=== PATIENT | female | born 1970 | race Caucasian/White ===

== ENCOUNTER 2016-10-03 12:56 | Emergency (ER) | payer OTHER ==
[~2016-10-03] VITALS: Ht 165.1 cm; Wt 70.5 kg
[2016-10-03 13:00] VITALS: BP 148/105; PULSE 76; RESP 18; O2SAT 99
--- NOTE | 2016-10-03 13:14 | ED.REPORT ---
HPI-Extremity Problem Lower Date of Service Oct 03, 2016 ED Provider: Joon Kang MD Pt is a 45 y/o female presenting to the ED due to left ankle injury onset last night. The pt rolled her left ankle while walking in her yard yesterday and went to Urgent Care. Urgent Care sent her here after noticing a fracture and possible need for reduction with sedation. She denies any other injury, numbness , or weakness. Nursing Notes Stated Complaint: LEFT ANKLE PAIN Chief Complaint: Extremity Trauma Nursing Notes Reviewed: Yes Allergies: Coded Allergies: Penicillins (Verified Allergy, Unknown, 10/03/16) Scheduled PRN Hydrocodone-Acetaminophen 5-325 mg (Hydrocodone-Acetaminophen 5-325 mg) 1 Each Tablet 1 TABLET PO Q4H PRN PRN For Pain General Time Seen by MD: 13:05 Chief Complaint Ankle injury left Hx Obtained From: Patient Arrived By: Wheelchair Onset Occurred: Yesterday Symptom Duration: Since onset Caused by: Accidental, Body motion Location: : Ankle left Quality: Painful Severity: Current: Moderate Severity: Maximum: Severe Exacerbated by: Range of motion, Movement Similar Sx Previous: No Past Medical History Past Medical History None reported Past Surgical History None reported Smoking History Unknown if Ever Smoker Ambulatory Status Independent Review of Systems Constitutional: Denies: Chills, Fever Musculoskeletal: Reports: Extremity pain, Extremity swelling Neurologic: Denies: Headache, Numbness, Weakness Complete sys rev & neg: except as marked. Physical Exam Initial Vital Signs Vital Signs (First) Date Time Temp Pulse Resp B/P Pulse Ox O2 Delivery O2 Flow Rate FiO2 10/03/16 13:00 36.1 76 18 148/105 99 10/03/16 17:02 Room Air Initial VS: Reviewed, Vital signs normal Head / Eyes: Atraumatic, Normocephalic, PERRL ENT: Mucous membranes moist, Conjunctiva normal, No scleral icterus Neck: Supple, Full range of motion Respiratory: Breath sounds normal, Clear to auscultation, No respiratory distress Cardiovascular: Regular rate & rhythm, Heart sounds normal, Intact distal pulses Abdomen / GI: Soft, No distention Skin: Warm, Dry, No cyanosis Neurologic: Alert, Oriented, Nonfocal Psychiatric: Mood/affect normal, Behavior normal, Normal thought content Lower Extremity / Pelvis / MS: Neurologic intact, Vascular intact Ankle / Foot: Neurologic intact, Vascular intact Left ankle is ecchymotic and swollen. Skin intact. No significant angulation Good DP and PT pulses Interpretation & Diagnostics Lab Results Interpretation Test 10/03/16 14:38 Hold Purple Top Tube Received (Received) Hold Blue Top Tube Received (Received) Hold Semmes Top Tube Received (Received) X-Ray Interpretation Xray Interpretation: Trimalleolar fracture. Read by orthopedic. Study Performed: 3 view X-Ray Ordered: Ankle left Interpretation / Wet Read by: Wet read ED physician Xray Interpretation: IMPRESSION: Increased displacement of trimalleolar ankle fracture, as described above. Dictated by: Tamia Chapman M.D. on 10/03/2016 at 15:34 Approved by: Tamia Chapman M.D. on 10/03/2016 at 15:36 Study Performed: 3 view, s/p attempted reduction X-Ray Ordered: Ankle left Interpretation / Wet Read by: Interpret - Radiologist Xray Interpretation: IMPRESSION: Improved alignment of trimalleolar ankle fracture. Dictated by: Tamia Chapman M.D. on 10/03/2016 at 16:53 Approved by: Tamia Chapman M.D. on 10/03/2016 at 16:54 Study Performed: 2 view X-Ray Ordered: Ankle left Interpretation / Wet Read by: Interpret - Radiologist Procedures Proced Mod Sedation/Analgesia Time: 16:20 Procedure Performed by: ED physician Sedation Time: 31 - 45 min Consent / Setup: Consent from patient Indication: Fracture reduction Preparation: shelter monitor applied, Pulse oximeter applied, Constant attendance, IV access established, Eval last meal time, Supplemental oxygen, Procedure explained, Suction available, End tidal CO2 mon applied VS Prior to Procedure: All vital signs normal, O2 saturation normal, Blood pressure normal, Heart Rate normal, Respiratory rate normal Mallampati: Class & Anatomy: 2 top tonsil/uvula/palate Airway Exam: Normal facial anatomy, Normal neck anatomy, Normal anatomy CVS/Resp Exam: Normal breath sounds, Normal heart sounds Neuro Exam: Alert, No acute distress Sedation: Sedation: Propofol (80 mg) ASA Classification: 1 normal healthy patient Response During Procedure: Handled secretions adeq, Maintained airway well, Oxygenation stable, Sedation appropriate, Vital signs stable Complications During/After: None Reversal: None required Mental Status After Procedure: Alert, Oriented X3 Post-Procedure: Alert prior to discharge, Ambulatory with assist, Pt rtn pre- proc baseline, Vital signs normal Attestation: I performed procedure, I performed sedation Reduction Dislocated Ankle THIS IS A FRACTURE REDUCTION. THERE IS NO NOTE FOR ANKLE REDUCTION SO THIS WAS USED THE CLOSEST SUBSTITUTE. Procedure not successful. During the reduction the patient became very anxious and moved her leg erratically against my instruction. Her ankle felt worse after the procedure. Second attempt at 16:20. Using L arm this time with sedation. Reduction successful. Condition improved. Time: 14:41 Procedure Performed by: ED physician Consent / Setup: Consent from patient, Hand hygiene observed, Stand sterile technique Which Ankle and Technique: Left ankle Neurovascular: Intact pre-procedure, Intact post-procedure Post-Procedure / Complications: Tolerated procedure well, Patient stable Re-Eval/Medical Decision Med Decision/Clinical Course Pt is a 45 y/o female presenting to the ED due to left ankle injury onset last night. The pt rolled her left ankle while walking in her yard yesterday and went to Urgent Care. Urgent Care sent her here after noticing a fracture and possible need for reduction with sedation. Upon arrival patient was afebrile and hemodynamically stable. X-rays were obtained that demonstrated mildly displaced trimalleolar fracture. Meds given: Dilaudid, Zofran. I discussed management with the patient and she wished to proceed with fracture reduction/splinting with IV hydromorphone and sedation. Upon attempts to manipulate the patient's ankle however she expressed significant pain and actively plantar flex her ankle causing further displacement of her fracture. Therefore we opted to perform procedural sedation using propofol as documented above. The patient was maintained on end-tidal CO2 and pulse oximetry at all times and tolerated sedation well. The fracture was reduced using fluoroscopy and adequate alignment was achieved. She was placed in a bulky Whalen splint and remained neurovascularly intact distally. She was provided with crutches and made nonweightbearing. She had been referred to orthopedic surgery for further management. She was discharged in good condition. Re-Evaluation/Progress : Time of Eval: 16:00 Patient Status: Condition improved, Moderate relief, Pain improved Re-Evaluation/Progress Note: Pt rechecked. Informed pt of plan for treatment. Pt understands and agrees with plan for treatment. F/U instructions and RTER warnings given. All questions addressed. Consultation : Referral / Consult Name: Juliano Larsen DO Call Returned at: 13:40 It Account Manager: Agrees with eval, Agrees with plan Note: Reports that this is a trimalleolar fracture. He will see the pt in follow up. Counseled Regarding: Diagnosis, Need for follow-up, When/why to return to ED Discharge & Departure Impression: Primary Impression: Trimalleolar fracture of left ankle Encounter type: initial encounter Fracture type: closed Qualified Code: S82.852A - Displaced trimalleolar fracture of left lower leg, initial encounter for closed fracture Additional Impressions: Fall from ground level Left ankle pain Chronicity: acute Qualified Code: M25.572 - Pain in left ankle and joints of left foot Disposition: Home Discharge Condition All VS Reviewed: Yes Condition: Stable Patient Instructions: Ankle Fracture (DC) Additional Instructions: Thank you for seeking care at emergency room. You have a trimalleolar fracture of your left ankle. Keep the splint on until seen by orthopedics. You will be discharged with a prescription for pain medication. Take this as directed. You should follow-up with an orthopedic doctor this week. The referral information is below. You should return to the ED immediately if you develop worsening uncontrolled pain, numbness or weakness of your foot, or any other concerning signs or symptoms. Thank you for letting us partake in your care today. Referrals: Mayito Wright MD (PCP) Juliano Larsen Attestation Portions of this note were transcribed by Arsenio Francisco. I, Dr. Kang personally performed the history, physical exam and medical decision-making; I reviewed and confirmed the accuracy of the information in the transcribed note. Signed by Yefri Johnston, 10/03/16 - 1221 copies to: Juliano Larsen DO; aMyito Wright MD, Beck O MD Oct 03, 2016 13:14 ARSENIO FRANCISCO Oct 03, 2016 14:20
[2016-10-03] MEDS ORDERED: Ondansetron 2 mg/mL 2 mL Inj IVPUSH PRN (13:15)
[2016-10-03] MEDS: HYDROmorphone 0.5 mg/0.5 mL iSecure Syringe IVPUSH PRN ×2 (13:35→16:05)
[2016-10-03] MEDS ORDERED: HYDROmorphone 1 mg/mL Inj IVPUSH ONE ×2 (14:15→14:20)
[2016-10-03] MEDS ORDERED: HYDR-4003 PO (14:19)
[2016-10-03] MEDS ORDERED: Propofol 10 mg/mL 20 mL Inj IVPUSH ONE (15:35)
--- NOTE | 2016-10-03 15:37 | DRSVH ---
PROCEDURE: X-RAY LEFT ANKLE, MINIMUM THREE VIEWS ([id number]) INDICATIONS: post reduction TECHNIQUE: 3 views of the ankle were acquired. COMPARISON: [facility], CR, XR ANKLE 3VW LT, 10/03/2016, 13:34. FINDINGS: Bones: There is a trimalleolar ankle fracture, as before. A splint is present, obscuring fine bony de tail. There is increased displacement of the fracture fragments, with relatively increased plantar fl exion of the foot compared to prior examination. The talus demonstrates increased, posterior displace ment relative to the distal tibia. The distal fibular and posterior malleolus fracture fragments demo nstrate increased displacement. Soft tissues: No tibiotalar joint effusion. Achilles tendon appears normal. IMPRESSION: Increased displacement of trimalleolar ankle fracture, as described above. Dictated by: Tamia Chapman M.D. on 10/03/2016 at 15:34 Approved by: Tamia Chapman M.D. on 10/03/2016 at 15:36
--- NOTE | 2016-10-03 16:37 | DRSVH ---
PROCEDURE: X-RAY LEFT ANKLE, MINIMUM THREE VIEWS ([id number]) INDICATIONS: fracture TECHNIQUE: 3 views of the ankle were acquired. COMPARISON: None. FINDINGS: Bones: Segmental intra-articular fractures present above the distal fibular metadiaphysis with mild l ateral and displacement of the distal fracture component. Mildly displaced posterior malleolar fract ure. There is linear lucency extending to the medial malleolus also suspicious for fracture but give n the appearance chronicity is indeterminate. Mild widening of the lateral ankle mortise. Post surg ical changes involving the first metatarsal head. Soft tissues: No tibiotalar joint effusion. Achilles tendon appears normal. IMPRESSION: Probable trimalleolar left ankle fracture as above with mild widening of the lateral ankl e mortise. Of note, well-corticated osseous density adjacent to the tip of the lateral malleolus lik mayur an ossicle. Dictated by: Francois Jin [facility] Interpreted: Yolanda Schultz MD on 10/03/2016 at 16:35 Transcribed by: FREDRICK on 10/03/2016 at 16:36 Approved by: Yolanda Schultz MD, PhD on 10/03/2016 at 16:54
--- NOTE | 2016-10-03 17:01 | DRSVH ---
PROCEDURE: X-RAY LEFT ANKLE, TWO VIEWS ([id number]) INDICATIONS: post reduction TECHNIQUE: 2 intraoperative spot views of the ankle were acquired. COMPARISON: [facility], CR, XR ANKLE 3VW LT, 10/03/2016, 15:12. FINDINGS: A splint is present, obscuring fine bony detail. Bones: There is improved alignment of the trimalleolar ankle fracture. Soft tissues: No tibiotalar joint effusion. Achilles tendon appears normal. IMPRESSION: Improved alignment of trimalleolar ankle fracture. Dictated by: Tamia Chapman M.D. on 10/03/2016 at 16:53 Approved by: Tamia Chapman M.D. on 10/03/2016 at 16:54
[2016-10-03 17:02] VITALS: BP 128/67; PULSE 63; RESP 16; O2SAT 97
[2016-10-08] MEDS ORDERED: OXYC1TAB24 PO (09:35)
[2016-10-08] MEDS ORDERED: DOCU-41 PO (09:35)
== END 2016-10-03 17:03 | disposition home or self-care (01) ==
LOC: SED 12:56
DX: S82.852A Displaced trimalleolar fracture of left lower leg, initial encounter for closed fracture (principal); X50.1XXA Overexertion from prolonged static or awkward postures, initial encounter; Y92.017 Garden or yard in single-family (private) house as the place of occurrence of the external cause; Y93.01 Activity, walking, marching and hiking; Y99.8 Other external cause status; Z88.0 Allergy status to penicillin
CPT/HCPCS: 27816; 73600; 73610; 76000; 94770; 94799; 96374; 96375; 96376; 99152; 99153; 99285; J1170; J2405

== ENCOUNTER 2016-10-09 10:02 | Day surgery (SDC) | payer OTHER ==
[2016-10-09] VITALS (13 sets, daily range): BP systolic 126–158; BP diastolic 62–98; PULSE 64–82; RESP 10–25; O2SAT 95–100
[~2016-10-09] VITALS: Ht 165.1 cm; Wt 74.2 kg
--- NOTE | 2016-10-09 06:37 | PCM.HPANE ---
Patient Data Surgeon Admitting Provider: Attending Provider:Andre Lozoya MD Primary Care Physician:Mayito Wright MD Other Provider:[facility] Reason for Visit Left Ankle Fracture Ht/WT & BMI Height (Feet): 5 Height (Inches): 5 Weight (Kilograms): 70.31 Body Mass Index 25.00 Allergies Coded Allergies: Penicillins (Verified Allergy, Unknown, 10/03/16) Past Anesthesia History Anesthesia History: Denies:: Abnormal Airway, Anesthesia Reactions, Difficult Intubation, Fam Anesthesia Reaction, Fam Malignant Hypertherm, Malignant Hyperthermia Diabetes History Hx Diabetes?: No MRSA MRSA: No Medications Hypertension Medication: No Home Meds Incl Beta Saeid: No Reported Medications oxyCODONE-Acetaminophen 5-325 mg 1 Each Tablet1 Tab PO Q6H PRN For Pain Ref 0 10/08/16 Docusate Sodium (Colace)100 Mg [id number] Mg PO DAILY PRN For Constipation Ref 0 10/08/16 Discontinued Scripts Hydrocodone-Acetaminophen 5-325 mg 1 Each Tablet1 Tablet PO Q4H PRN For Pain # 20 TABLET Prov:Joon Kang MD 10/03/16 History HEENT History: Denies:: Abnormal Airway Cataracts Difficult Intubation Dysphagia Glaucoma Hearing Problem Sinus Problem TMJ Cardiovascular History: Denies:: AICD Abdominal Aortic Aneurism Cardiac Surgery Congestive Heart Failure Edema Heart Murmur Hypertension Irregular Heartbeat Pacemaker Peripheral Vascular Hx of Respiratory Problem?: No Respiratory History: Denies:: Asthma COPD Emphysema Oxygen Administration Pneumonia Tuberculosis Use of C-PAP Machine Use of Inhalers / NEBS Hx Neurologic Problems?: No Neurological History: Denies:: Alzheimer's Disease CVA Dementia Dizziness Headaches Multiple Sclerosis Parkinson's Disease Seizures TIA Hx of GI Problems?: No Gastrointestinal History: Denies:: Cirrhosis Gall Bladder Disease Gastroesphageal Reflux Gastrointestinal Bleeding Heartburn Hepatitis Hiatal Hernia Liver Disease Hx of Problems?: No Genitourinary History: Denies:: Kidney Stones Urinary Tract Infection Female Hx: Denies:: Currently (hysterectomy) Problems with Breasts? (hx of breast augmention) Skin History: Positive for:: History Skin Disorders? (fracture blisters same leg) Hx Musculoskeletal Problems?: Yes Musculoskeletal History: Positive for:: Musculoskeletal Trauma (left ankle fracture current admission problem) Denies:: Back Injury Fibromyalgia Joint Replacement Myasthenia Gravis Osteoarthritis Rheumatoid Arthritis Systemic Lupus Hx of Psycho/Social Problems?: No Psycho Social History: Denies:: Anxiety Hx Depression Hx Surgeries?: Yes (hysterectomy, breast augmentation) Other History: Positive for:: Thyroid Disease (hyper thyroid, not on meds) Denies:: Cancer History Blood Transfusions: Positive for:: Accept Blood Products? Denies:: Blood Transfusions Hx Diabetes: No Hx Alcohol Use: Yes (not since injury)Alcoholic Drinks Per Day: 4-5 drinks weeklyHx Substance Use: Yes (marijuana randomly) Smoking Status: Unknown if Ever Smoker Have You Smoked inLast 12 mo: Yes Stop/Bang S-Snoring: Do You Snore Loudly: No T-Tired: feel tired, fatigued: No O-Obsered: Observed not breath: No P-Blood Pressure: treated: No B- Body Mass Index > 35 kg/m2: No A- Age over 50: No N- Neck Large Circumference: No G- Gender Male: No SEE Total Score: 0 SEE Risk Assessment: Low Risk, <3 Yes Risk Assessment Category Category 1A: Patient has history of documented sleep apnea, and HAS NOT received any narcotic, sedative or anesthesia administration during this stay. Category 1B: Patient has history of documented sleep apnea, and HAS received any narcotic , sedative or anesthesia administration during this stay Category 2: Patient has SUSPECTED Obstructive Sleep Apnea, and HAS received any narcotic , sedative or anesthesia administration during this stay. Category 3: Patient has SUSPECTED Obstructive Sleep Apnea and HAS NOT received narcotic, sedative or anesthesia administration during this stay. Category 4: Outpatient in Procedural Areas with known sleep apnea or who screen positive for High Risk via the STOP/BANG questionnaire. Exam Exam General Appearance: Alert, Oriented X3, Cooperative, No Acute Distress HEENT/AIRWAY: MP 2 Lungs: Clear to Auscultation, Normal Air Movement Heart: Exam Unremarkable, Regular Rate/Rhythm, No Murmurs/Rubs/Gallops Plan Impression Patient chart reviewed, patient interviewed and anesthestic plan with risks, benefits, and alternatives discussed, and informed consent obtained. ASA Physical Status: ASA2 Mod Systemic Disease Anesthetic Plan: GA Bene/Risks/Altern/Consents: Yes HP Complete Prior to Induction: Yes Hawk Goode MD Oct 09, 2016 06:37
[~2016-10-09 10:02] MED LIST: Clindamycin Inj 600 MG in IV Premix 1 EACH IV ONE; DOCU-41 PO; OXYC1TAB24 PO
[2016-10-09] MEDS ORDERED: Ondansetron 2 mg/mL 2 mL Inj ONE (10:03)
[2016-10-09] MEDS ORDERED: Propofol 10,000 mCg/mL 20 mL Inj ONE (10:03)
[2016-10-09] MEDS ORDERED: Dexamethasone 4 mg/mL Inj ONE (10:03)
[2016-10-09] MEDS ORDERED: fentaNYL-PF 50 mCg/mL 2 mL Inj ONE (10:03)
[2016-10-09] MEDS: Lactated Ringer's 1,000 ML IV SCH ×2 (10:50→12:27)
[2016-10-09] MEDS: fentaNYL-PF 50 mCg/mL 2 mL Inj IVPUSH PRN ×6 (10:57→14:42)
[2016-10-09] MEDS ORDERED: Lactated Ringer's 1,000 ML IV SCH (12:47)
[2016-10-09] MEDS ORDERED: Lactated Ringer's 500 ML IV PRN (12:47)
[2016-10-09] MEDS ORDERED: Atropine 0.4 mg/mL Inj IVPUSH PRN (12:50)
[2016-10-09] MEDS ORDERED: hydrALAZINE 20 mg/mL Inj IVPUSH PRN (12:50)
[2016-10-09] MEDS ORDERED: MetoCLOpramide 5 mg/mL 2 mL Inj IVPUSH PRN (12:50)
[2016-10-09] MEDS ORDERED: Dexamethasone 4 mg/mL Inj IVPUSH PRN (12:50)
[2016-10-09] MEDS ORDERED: Ondansetron 2 mg/mL 2 mL Inj IVPUSH PRN (12:50)
[2016-10-09] MEDS ORDERED: Labetalol 5 mg/mL 4 mL Inj IV PRN (12:50)
[2016-10-09] MEDS ORDERED: Phenylephrine 10,000 mCg/mL Inj IVPUSH PRN (12:50)
[2016-10-09] MEDS ORDERED: EPHEDrine Sulfate 50 mg/mL Inj IVPUSH PRN (12:50)
[2016-10-09] MEDS ORDERED: Ropivacaine-PF 0.5% 30 mL Inj INFILTRATE ONE (12:51)
[2016-10-09] MEDS ORDERED: oxyCODONE-Acetamin 5-325 mg Tablet PO PRN (13:40)
[2016-10-09] MEDS ORDERED: Lactated Ringer's 1,000 ML IV ONE (13:41)
--- NOTE | 2016-10-09 13:43 | PCM.ORTHOP ---
Orthopedic Operative Report Date of Service: Oct 09, 2016 Pre Operative Diagnosis Left trimalleolar ankle fracture Post Operative Diagnosis Same Procedure Left ankle open reduction internal fixation, trimalleolar fracture Surgeon Surgeon: Andre Lozoya MD Assistants: Carlos Galan Indication for Procedure Left ankle fracture Findings Left ankle malleolar fracture, displaced. Previously healed medial malleolar fracture Details of Procedure Indications: Ady Pinedo is a 45-year-old female who sustained a left trimalleolar ankle fracture. A clear explanation was given to the patient regarding the condition present, and the available conservative and surgical options. It was emphasized that the risks and benefits of surgery include but are not limited to infection, wound healing problems, damage to adjacent structures such as nerves, blood vessels and tendons, chcf disability and pain, arthritis, hypersensitivity, deep vein thrombosis, pulmonary embolism, broken hardware, failure of surgery, need for further procedures at time of surgery or later, cast related problems, loss of limb or life. The patient was given an explanation and the patient voiced understanding of what to expect after the procedure or surgery, the limitations in activities of daily living, the likely duration for post operative recovery and the instructions that are to be followed. At the end the patient was invited to seek clarification or ask further questions but there were none. The patient voiced understanding of the entire consultation. Description of Operation: The patient was brought to the operating room. Patient name and surgical site were confirmed. Preoperative antibiotics were given. The patient was placed supine on the operating table. General anesthesia was administered. A well padded tourniquet was placed on the leg. The leg was then prepped and draped in the usual sterile fashion. The leg was exsanguinated and the tourniquet was inflated. The lateral malleolus was addressed first. An incision was made over the lateral ankle. Subcutaneous dissection was performed down to the lateral malleolus. Care was taken to avoid injury to the superficial peroneal nerve. The fracture was cleaned of debris and interposed soft tissue. The fracture was reduced to anatomic alignment using reduction clamps and preliminary fixation techniques. There was minimal comminution and the bone was amenable to lag screw fixation 2. Fluoroscopy was used to confirm satisfactory reduction. A one-third tubular plate was then placed and secured in position using 3.5 mm fully threaded cortical screws proximally and 3.5 mm locking screws distally. Solid bony purchase was achieved with a combination of locking and nonlocking screws. The medial side was addressed next. An incision was made over the medial malleolus and centered over the fracture site. Subcutaneous dissection was performed down to bone. Adequate exposure was achieved. Care was taken to avoid injury to the saphenous nerve and vein. The fracture was cleaned of debris and interposed soft tissue. The fracture was reduced to anatomic alignment using preliminary fixation techniques and a 1.5 mm K-wire. Previously healed medial medial malleolar fracture noted. A 4-0 cannulated screw was placed to ensure fixation. Fluoroscopy was used to confirm satisfactory reduction. Final radiographs confirmed anatomic reduction of the fracture, jewish of the ankle mortise, and adequate placement of hardware. The ankle joint was stressed and the syndesmosis was found to be stable along with no subluxation of the joint on the lateral view so the decision was made not to fix the posterior malleolus fracture which was stable. The tourniquet was deflated. Hemostasis was obtained with electrocautery. The wounds were thoroughly irrigated with bulb irrigation. The wounds were then closed in layers. The incisions were cleaned and dressed with Adaptic, gauze, and soft roll. A well padded plaster splint was then placed and wrapped with an Shon bandage. Estimated blood loss was 15 cc. There were no immediate complications. The patient was transferred to the PACU in stable condition. I was present for the entire procedure. CONSERVATION BIOLOGY PROFESSOR SURGEON: During the operation, the services of physician certified surgical technician were medically indicated and necessary to provide exposure of the operative site for the surgical procedure and to maintain the limb in a proper position to carry out the operation safely and efficiently. Without the qualified financial legal assistant being present, it would have extended the operative procedure and made the procedure technically more difficult to perform. Specimens Obtained: none Grafts, Implants: Implants-See Implant Record Complications There were no periprocedural complications identified. Condition Stable Anesthetic Administered: GA Catheters: None Output, Estimated Blood Loss: 10 Blood Admin during surgery: No Surgical Cast or Splint: Well-padded Short Leg Splint Surgical Specimen Removed: No Specimen sent to Pathology: No copies to: Andre Lozoya MD, Christopher L MD Oct 09, 2016 13:43
[2016-10-09] MEDS: HYDROmorphone 1 mg/mL Inj IVPUSH PRN ×2 (14:05→14:12)
--- NOTE | 2016-10-09 14:19 | PCM.ANEP1 ---
Post Anesthesia Phase 1 PACU Phase 1 Assessment Date of Service: Oct 09, 2016 Vital Signs Vital Signs Date Time Temp Pulse Resp B/P Pulse Ox O2 Delivery O2 Flow Rate FiO2 10/09/16 14:15 37.0 80 22 158/79 100 Simple Mask 7 10/09/16 14:10 77 17 152/87 100 Simple Mask 7 10/09/16 14:05 82 18 138/87 100 Simple Mask 10 10/09/16 14:01 36.1 139/95 10/09/16 10:36 36.2 67 16 126/62 100 Room Air Anesthetic Administered: GA Level of Alertness: Awake, talking FOWLER's with Equal Strength: Yes Pain: No Nausea or Vomiting: No Lungs: Clear to Auscultation, Normal Air Movement Hawk Goode MD Oct 09, 2016 14:19
--- NOTE | 2016-10-09 14:48 | PCM.ANEP2 ---
Post Anesthesia Evaluation ASA/CMS Post Anesthesia VS in Patient's Normal Range?: Yes Resp Stable; Airway Patent?: Yes CV Function & Hydration Stable: Yes Mental Status Recovered?: Yes Pain control Satisfactory?: Yes N/V Control Satisfactory?: Yes Hawk Goode MD Oct 09, 2016 14:48
[2016-10-09] MEDS ORDERED: Ketorolac 15 mg/mL Inj ONE (14:52)
== END 2016-10-09 23:59 | disposition home or self-care (01) ==
LOC: SAS 10:02
PROVIDERS: ATTEND Orthopaedic Surgery
DX: S82.852A Displaced trimalleolar fracture of left lower leg, initial encounter for closed fracture (principal)
CPT/HCPCS: 27822; 76000; C1713; J1100; J1170; J1200; J1885; J2175; J2250; J2405; J2795; J3010; J7120